=== PATIENT | female | born 1960 | race Caucasian/White ===

== ENCOUNTER → 2018-09-16 11:24 | Outpatient (CLI) | payer OTHER, MEDICAID, SELFPAY ==
--- NOTE | 2018-09-16 | DI.MG.S_ITS ---
BILATERAL DIGITAL SCREENING MAMMOGRAM 3D/2D WITH CAD: 09/16/2018 CLINICAL: Routine screening. Family history of breast cancer. Comparison is made to exams dated: 07/25/2015 mammogram - [facility], 11/14/2011 mammogram, and 05/17/2009 mammogram - [facility]. The tissue of both breasts is heterogeneously dense. This may lower the sensitivity of mammography. Current study was also evaluated with a Computer Aided Detection (CAD) system. No significant masses, calcifications, or other findings are seen in either breast. There has been no significant interval change. IMPRESSION: NEGATIVE There is no mammographic evidence of malignancy. A 1 year screening mammogram is recommended. NOTE: For mammograms, a report in lay terms will be sent to the patient. Approximately 15% of breast malignancies will not be visualized mammographically. In the management of a palpable breast mass, a negative mammogram must not discourage biopsy of a clinically suspicious lesion. Electronically Signed By: Heriberto [email or web address]:09/16/2018 12:38:33 letter sent: Normal Exam ACR BI-RADS Category 1: Negative 3341F
== END ==
PROVIDERS: PCP Family Medicine; Visit Provider Nurse Practitioner Family
DX: Z12.31 Encounter for screening mammogram for malignant neoplasm of breast (principal); Z80.3 Family history of malignant neoplasm of breast; Z78.0 Asymptomatic menopausal state; Z98.84 Bariatric surgery status
CPT/HCPCS: 77063; 77067; 77080

== ENCOUNTER → 2021-05-09 10:07 | Outpatient (CLI) | payer OTHER, SELFPAY ==
[2021-05-09 19:19] LABS: Add Manual Diff / Slide Review NO; Basophils Absolute Auto 0 /uL (0-100); Basophils Percent Auto 0.7 % (0-2); Eosinophils Absolute Auto 100 /uL (0-450); Eosinophils Percent Auto 1.5 % (2-4); Hematocrit 37.1 % (36-46); Hemoglobin 12.4 g/dL (12.0-16.0); Lymphocytes Absolute Auto 1500 /uL (1100-4500); Lymphocytes Percent Auto 28.9 % (25-40); Mean Corpuscular HGB Conc 33.4 % (30-36); Mean Corpuscular Hemoglobin 30.2 PG (26-34); Mean Corpuscular Volume 90.4 fL (80-100); Monocytes Absolute Auto 500 /uL (0-900); Monocytes Percent Auto 8.8 % (3-14); Neutrophils Absolute Auto 3100 /uL (1500-7000); Neutrophils Percent Auto 60.1 % (50-75); Platelet Count 283 X10^3/uL (150-400); Red Cell Distribution Width 13.9 % (11.6-14.8); White Blood Cell Count 5.2 X10^3/uL (4.5-11.0)
[2021-05-09 19:24] LABS: HEMOLYSIS < 15 (0-50); Iron 87 ug/dL (37-170)
[2021-05-09 19:26] LABS: Alanine Aminotransferase 45 IU/L (<35); Albumin 4.1 g/dL (3.5-5.0); Albumin Globulin Ratio 1.6 (1.0-2.8); Alkaline Phosphatase 70 U/L (38-126); Aspartate Aminotransferase 34 IU/L (14-36); BUN Creatinine Ratio 28.1 (6-22); Bilirubin Total 1.1 mg/dL (0.2-1.3); Blood Urea Nitrogen 18 mg/dL (7-17); Calcium 9.5 mg/dL (8.4-10.2); Carbon Dioxide 32 mmol/L (22-32); Chloride 100 mmol/L (98-107); Cholesterol 119 mg/dL (140-199); Estimated Glomerular Filt Rate > 60.0 mL/min (>60); Globulin 2.5 g/dL (1.7-4.1); Glucose 129 mg/dL (80-110); HDL Cholesterol 56 mg/dL (40-60); HEMOLYSIS < 15 (0-50); LDL Cholesterol Calculated 47 mg/dL (<100); Potassium 4.1 mmol/L (3.4-5.1); Sodium 137 mmol/L (137-145); Total Protein 6.6 g/dL (6.3-8.2); Triglycerides 79 mg/dL (35-150)
[2021-05-09 19:37] LABS: Percent Iron Saturation 21 % (15-50); Total Iron Binding Capacity 411 ug/dL (265-497); Transferrin 338 mg/dL (206-381)
[2021-05-09 19:40] LABS: Hemoglobin A1C% w Est Avg Glu 7.8 % (4.0-6.0)
[2021-05-09 19:43] LABS: Vitamin D 25 Hydroxy (D3) 79.2 ng/mL (30.0-100.0)
[2021-05-09 19:56] LABS: Thyroid Stimulating Hormone 1.81 uIU/mL (0.47-4.68)
[2021-05-09 20:01] LABS: Ferritin 24 ng/mL (11-264)
[2021-05-09 20:15] LABS: Vitamin B12 > 1000 pg/mL (239-931)
== END ==
PROVIDERS: PCP Family Medicine; Visit Provider Physician Assistant
DX: E11.9 Type 2 diabetes mellitus without complications (principal); E53.8 Deficiency of other specified B group vitamins; E55.9 Vitamin D deficiency, unspecified; E61.1 Iron deficiency; E78.5 Hyperlipidemia, unspecified; I10 Essential (primary) hypertension; Z79.4 Long term (current) use of insulin; Z98.84 Bariatric surgery status
CPT/HCPCS: 80053; 80061; 82306; 82607; 82728; 83036; 83540; 83550; 84443; 85025